=== PATIENT | female | born 1965 | race Caucasian/White ===

== ENCOUNTER 2024-04-10 19:45 | Emergency (ER) | payer OTHER, SELFPAY ==
[2024-04-10 19:51] VITALS: BP 139/82
[2024-04-10 20:15] LABS: % Basophils 0.7 % (0-2); % Immature Granulocytes 0.1 % (0-0.5); % Lymphocytes 32.5 % (20.5-51.1); % Monocytes 7.2 % (1.7-9.3); % Neutrophils 58.5 % (42.2-75.2); Absolute Basophils 0.1 10^3/uL (0-0.2); Absolute Eosinophils 0.1 10^3/uL (0-0.7); Absolute Monocytes 0.7 10^3/uL (0.1-0.6); Absolute Neutrophils 5.3 10^3/uL (1.4-6.5); Hematocrit 39.1 % (37.0-47.0); Hemoglobin 13.9 g/dL (12.0-16.0); Mean Corp Hgb Conc. 35.5 g/dL (33.0-37.0); Mean Corpuscular Volume 90.1 fL (81.0-99.0); Mean Platelet Volume 9.8 fL (7.4-10.4); Nucleated Red Blood Cells % 0 %; Platelet Count 303 10^3/uL (130-400); Red Blood Cell Count 4.34 10^6/uL (4.20-5.40); Red Cell Dist. Width 13.8 % (11.5-14.5); White Blood Cell Count 9.1 10^3/uL (4.8-10.8)
[2024-04-10 20:39] LABS: ALT (SGPT) 30 U/L (0-35); AST (SGOT) 23 U/L (14-36); Albumin 4.5 g/dl (3.5-5.0); Alkaline Phosphatase 82 U/L (38-126); Blood Urea Nitrogen 19 mg/dl (7-17); Calcium 9.7 mg/dl (8.4-10.2); Carbon Dioxide 20 mmol/L (22-30); Chloride 105 mmol/L (98-107); Glucose 99 mg/dl (70-99); Potassium 4.7 mmol/L (3.5-5.1); Sodium 140 mmol/L (135-145); Total Bilirubin 0.3 mg/dl (0.2-1.3); Total Protein 7.1 g/dl (6.3-8.2); eGFR > 60.00
[2024-04-10 20:39] LABS: INR 0.93; PT 12.5 Sec (11.4-14.6)
[2024-04-10 20:50] LABS: Troponin I < 0.012 ng/ml
[2024-04-10 21:57] VITALS: BMI 34.0
[2024-04-10 22:19] VITALS: BP 110/96
[2024-04-10 22:55] LABS: D-Dimer 0.84 ug/mlFEU (0.00-0.50)
[2024-04-10 23:06] LABS: Troponin I < 0.012 ng/ml
[2024-04-10 23:37] VITALS: BP 119/86
[2024-04-11 00:38] VITALS: BP 107/67
--- NOTE | 2024-04-11 00:52 | ED.GENMED ---
History of Present Illness
General
Chief Complaint: Chest Pain
Source: patient
Exam Limitations: none
Time Seen by Provider: 04/10/24 21:23
History of Present Illness
History of Present Illness:
58-year-old female who presents not feeling well. Patient states that she started not feel well earlier and just felt fatigued and weak. She suddenly woke up with chest pain shortness of breath. She states that pain is sort of all across her
chest and constant. Symptoms started about an hour prior to arrival. She does drive to [place] once a week or once every 2 weeks. She has a little bit of left ankle discomfort as well. No fevers. No cough. No hemoptysis. No injury.
Past History
Past History
ED Past Medical History: Psychiatric and Other (Gallstones, Thyroid Cancer)
ED Past Surgical History: Appendectomy, Cholecystectomy, and Gynecological; Negative Bowel resection
Social History
Tobacco: Non-smoker
Alcohol: None
Drug: None
Personal: Single
Living: with family
Employment: Employed
Family History
Family History: Other (Noncontributory)
Phy Exam
Physical Exam
Physical Exam:
CONSTITUTIONAL Patient alert and oriented to person, place and time. Well-appearing. Vital signs reviewed.
HEAD atraumatic, normocephalic.
EYES eyelids normal to inspection, Extraocular muscles intact, Conjunctiva normal, Sclera normal.
NECK normal range of motion, Trachea midline, no jugular venous distention.
RESPIRATORY CHEST No respiratory distress noted, Chest expansion equal, Bilateral breath sounds clear.
CARDIOVASCULAR regular rate and rhythm, Heart sounds normal.
ABDOMEN abdomen nontender, Bowel sounds normal. No distention.
BACK normal inspection, no obvious deformities
UPPER EXTREMITY range of motion normal, Motor strength normal, no cyanosis, no edema.
LOWER EXTREMITY range of motion normal, Motor strength normal, no cyanosis, no edema.
NEURO Speech normal, No focal motor deficits, [place] coma scale 15, Memory normal, Cranial Nerves intact to screening exam.
SKIN skin warm, dry, and normal in color.
Scores
Heart Score for Chest Pain Patients
STEMI patient?: No
History: Slightly or Non-Suspicious
ECG: Normal
Age: >45 - <65 years
Risk Factors: 1 or 2 Risk Factors
Troponin: </= Normal Limit
Heart Score for Chest Pain Patients: 2
Heart Score Risk: 2.5% MACE over next 6 weeks
Course
Orders/Labs/Results
Orders:
Orders
04/10/24 19:46
Electrocardiogram (*1) Urgent
Reason for Study: Chest Pain
EKG- Treatment ONCE
04/10/24 20:03
Complete Blood Count/With Diff Urgent
Comprehensive Metabolic Panel Urgent
Troponin I Urgent
04/10/24 20:05
PT/INR [Prothrombin Time] Urgent
04/10/24 22:31
D-Dimer Urgent
Troponin I Urgent
04/10/24 23:13
CT Chest Pe Study Urgent
Comment:
Reason For Exam: cp, sob
04/11/24 00:47
Ondansetron Injectable [Zofran] 4 mg IV NOW STA
04/11/24 00:50
Electrocardiogram (*1) Urgent
Reason for Study: Chest Pain
04/11/24 00:51
EKG- Treatment ONCE
04/11/24 01:00
Electrocardiogram (*1) Urgent
Reason for Study: Chest Pain
EKG- Treatment ONCE
Abnormal Lab Results
04/10/24 04/10/24
20:03 22:31
MCH 32.0 H pg
(27.0-31.0)
Absolute Monos (auto) 0.7 H 10^3/uL
(0.1-0.6)
D-Dimer 0.84 H ug/mlFEU
(0.00-0.50)
Carbon Dioxide 20 L mmol/L
(22-30)
BUN 19 H mg/dl
(7-17)
04/10/24 20:03
04/10/24 20:03
Vital Signs
Initial and Last Documented VS:
Initial Vital Signs
Temp Pulse Resp BP Pulse Ox
98.5 F 87 18 139/82 98
04/10/24 19:51 04/10/24 19:51 04/10/24 19:51 04/10/24 19:51 04/10/24 19:51
Last Documented Vital Signs
Temp Pulse Resp BP Pulse Ox
98.5 F 68 14 123/69 98
04/10/24 19:51 04/11/24 01:34 04/11/24 01:34 04/11/24 01:34 04/11/24 01:34
MDM/Problems Addressed
MDM/Problems Addressed:
Chest pain, dyspnea
*Radiology
Radiology exam reviewed: preliminary read by ED provider (No obvious large pulmonary artery clots) and radiology read reviewed
*Pulse Oximetry
Patient hypoxic: no
*EKG
Interpreted by ED Provider?: Yes
Interpretation: abnormal
Rate: normal
Rhythm: sinus
Cogswell: left axis deviation
Interval: normal interval
Ischemia: no ischemia
*Practice Business Asst Interpretation
Rate: normal
Interpretation: normal
Rhythm: sinus
*Critical Care Note
Total Time (30-74mins, 75-104mins- exclusive of procedures): Not Applicable
Data Reviewed
Source: patient
Prescriptions/Medications Considered But Not Given:
Consider nitroglycerin but low suspicion for ACS
Patient Management
Escalation/DeEscalation of care consider admission/obs:
EKG, CTA, troponin x 2 unremarkable. Patient overall appears well. Will refer for outpatient follow-up with cardiology follow-up hotline
ED Attending Note
-
Portions of this chart may have been created with voice recognition software.� Occasional wrong word or��sound alike� substitutions may have occurred due to the inherent limitations of voice recognition software.
Discharge Plan
Departure
Patient Disposition: Home (Routine Discharge)
Date of Disposition: 04/11/24
Time of Disposition: 01:01
Patient with high blood pressure during this ER visit?: Yes
Discharge Problem:
Chest pain, Acute dyspnea
Instructions: Chest Pain DCA Follow Up, BLOOD PRESSURE
Prescriptions:
No Action
ondansetron 4 MG tablet,disintegrating
4 mg PO TIDPRN PRN (Reason: nausea/vomiting) Qty: 10 0RF
Referrals:
NONE,* [Family Provider] -
Activity Restrictions/Additional Instructions:
Please take 81 mg of aspirin a day. Please avoid strenuous or exertional activity until cleared by cardiology. Please see cardiology in the next 48 hours for reevaluation. Return immediately for worsening pain, shortness breath, palpitations,
sweating, nausea, weakness of any kind, numbness, tingling or any other concerns.
Cardiology has been notified and a follow up appointment has been requested. Someone will call you on the next business day to schedule a follow up appointment.
Interventions
Interventions:
*Risk Screen - Suicide Last Done: 04/10/24 19:51
*General Assessment Last Done: 04/10/24 19:51
*Neglect/Abuse Screening Last Done: 04/10/24 19:51
ED- Fall Risk Assessment Last Done: 04/10/24 23:00
*ED COVID-19 Vaccine History Last Done: 04/10/24 19:51
ED- Cardiac Assessment Last Done: 04/10/24 23:00
Discharge Date and Time
Print Language: YAKUT
[2024-04-11] MEDS: ZOFRAN 4 MG IV (00:56)
[2024-04-11 01:00] VITALS: BP 120/81
[2024-04-11 01:34] VITALS: BP 123/69
== END 2024-04-11 01:57 | disposition home or self-care (01) ==
LOC: EMR 19:45
PROVIDERS: Emergency Medicine; EMERGENCY PHYSICIAN Emergency Medicine
DX: R07.9 Chest pain, unspecified (principal); R06.00 Dyspnea, unspecified; Z85.850 Personal history of malignant neoplasm of thyroid; Z90.49 Acquired absence of other specified parts of digestive tract
CPT/HCPCS: 99284; 96374; 71275; 80053; 84484; 85025; 85379; 85610; 93005; Q9967

== ENCOUNTER 2024-04-16 13:22 | Observation (INO) | payer OTHER, SELFPAY ==
[2024-04-16] VITALS (13 sets, daily range): BP systolic 98–148; BP diastolic 61–84; BMI 33.7; BMI 33.0
[2024-04-16 05:09] LABS: % Basophils 0.3 % (0-2); % Eosinophils 0.2 % (0-6); % Immature Granulocytes 0.4 % (0-0.5); % Lymphocytes 6.2 % (20.5-51.1); % Monocytes 4.3 % (1.7-9.3); % Neutrophils 88.6 % (42.2-75.2); Absolute Immature Granulocytes 0.1 10^3/uL (0-0.05); Absolute Lymphocytes 0.9 10^3/uL (1.2-3.4); Absolute Monocytes 0.6 10^3/uL (0.1-0.6); Absolute Neutrophils 12.5 10^3/uL (1.4-6.5); Hematocrit 40.4 % (37.0-47.0); Hemoglobin 13.8 g/dL (12.0-16.0); Mean Corp Hgb Conc. 34.2 g/dL (33.0-37.0); Mean Corpuscular Hgb 30.6 pg (27.0-31.0); Mean Corpuscular Volume 89.6 fL (81.0-99.0); Mean Platelet Volume 9.7 fL (7.4-10.4); Nucleated Red Blood Cells % 0 %; Platelet Count 294 10^3/uL (130-400); Red Blood Cell Count 4.51 10^6/uL (4.20-5.40); Red Cell Dist. Width 13.8 % (11.5-14.5); White Blood Cell Count 14.1 10^3/uL (4.8-10.8)
--- NOTE | 2024-04-16 05:09 | ED.GENMED ---
History of Present Illness
General
Chief Complaint: Chest Pain
Source: patient and records
Exam Limitations: none
Time Seen by Provider: 04/16/24 04:54
Nursing documentation reviewed up to this point in time: agreed with
History of Present Illness
History of Present Illness:
58-year-old female with speech of Oddi dysfunction prior drinker prior smoker seen here couple days ago with shortness of breath had a CT of her chest discharged home she has had numerous laparoscopies, woke up this morning short of breath sweaty,
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
Past History
Past History
ED Past Medical History: Psychiatric and Other (Gallstones, Thyroid Cancer)
ED Past Surgical History: Appendectomy, Cholecystectomy, and Gynecological; Negative Bowel resection
Social History
Tobacco: Non-smoker
Alcohol: None
Drug: None
Personal: Single
Living: with family
Employment: Employed
Family History
Family History: Other (Noncontributory)
Review of Systems
Review of Systems
All Other Systems: Not applicable
Constitutional: Denies fever or fatigue
EENT: Reports no symptoms
Respiratory: Reports trouble breathing
Cardiac: Reports chest pain
ABD/GI: Denies abdominal pain
: Reports no symptoms
Musculoskeletal: Reports no symptoms
Skin: Reports no symptoms
Neurological: Reports no symptoms
Endocrine: Reports no symptoms
Phy Exam
Physical Exam
Physical Exam:
Physical Exam
General: no apparent distress, not acutely ill
Neck: No jaundice
Heart: s1/s2 regular rate and rhythm, no murmur. equal radial pulses.
Lungs: no acute respiratory distress. clear bilaterally
Abdomen: Soft nontender
Neuro: alert and oriented. no focal neurological deficits
Skin: no rash
Psychiatric: well kept. interactive and cooperative
Extremities: no edema. no calf tenderness.
Scores
Heart Score for Chest Pain Patients
STEMI patient?: No
History: Slightly or Non-Suspicious
ECG: Normal
Age: </= 45 years
Risk Factors: No Risk Factors
Troponin: </= Normal Limit
Heart Score for Chest Pain Patients: 0
Heart Score Risk: 2.5% MACE over next 6 weeks
Course
Orders/Labs/Results
Orders:
Orders
04/16/24 03:37
ECG [Electrocardiogram (*1)] Urgent
Reason for Study: Chest Pain
EKG- Treatment ONCE
04/16/24 04:51
Cardiac Monitoring- Treatment ONCE
IV Insert/Care/Rem.- Treatment PRN
04/16/24 05:00
Complete Blood Count/With Diff Urgent
Comprehensive Metabolic Panel Urgent
Lipase Urgent
NT-proBNP Urgent
Troponin I Urgent
04/16/24 05:03
Ondansetron Injectable [Zofran] 4 mg IV NOW STA
Pantoprazole [Protonix IV] 40 mg IV NOW STA
04/16/24 05:37
CR Chest - 2 Views Urgent
Comment:
Reason For Exam: Shortness of breath
04/16/24 Breakfast
Regular
At Your Request: Full Participation
04/16/24 07:52
Ondansetron Injectable [Zofran] 4 mg .ROUTE .STK-MED ONE
04/16/24 07:53
Ondansetron Injectable [Zofran] 4 mg IV NOW STA
04/16/24 08:02
Electrocardiogram (*1) Urgent
Reason for Study: Other
Other Reason for Exam: 2nd troponin
EKG- Treatment ONCE
Troponin I Urgent
04/16/24 08:43
US Periph Venous LOWER Ext Scooter Urgent
Comment:
Reason For Exam: Leg pain/short of breath
04/16/24 12:53
Echo 2D MMode Color/Doppler [Echo 2D MMode Color/Doppler] Routine
Reason for Study: sob,chest pain
Ipratropium/Albuterol Sulfate [Duoneb] 3 ml INH R Q4HPRN PRN
Mag Hydrox/Al Hydrox/Simeth [Maalox] 30 ml PO NOW STA
04/16/24 12:55
Admit/Transfer Patient As Directed
Co-Sign Provider:
Level of Care: Observation services
Assign to:: Telemetry
Physician / Group: jordan llanes
Diagnosis: sob,chest pain
Reason for Telemetry: Arrhythmia
Date to Stop Telemetry: 04/19/24
Time to Stop Telemetry: 11:00
Budesonide [Pulmicort] 0.5 mg INH R BID
PRN Pain Medication Management As Directed
May give lesser potent ordered pain med per pt: Yes
preference::
Protocol:: Medication orders for pain may be administered in a
manner that supports deferring to patient preference
when the pt is:
- Requesting an ordered lesser potent pain medication.
Least to most potent pain medications are defined
as: acetaminophen < NSAID < tramadol < opioids
(morphine, oxycodone, hydromorphone).
- Requesting a lesser dose of the same medication IF
ORDERED.
- Requesting a less intrusive route of administration
if both routes are prescribed by the provider (PO <
IV).
04/16/24 12:56
Code Status As Directed
Resuscitation Status: Full Code
04/16/24 12:59
Abdomen Xray - 1 View [CR Abdomen - 1 View] Stat
Comment:
Reason For Exam: nausea,vomiting
04/16/24 14:00
Ondansetron Injectable [Zofran] 4 mg IV Q6HPRN PRN
04/16/24 14:38
Troponin I Q6H
04/16/24 16:00
Ipratropium/Albuterol Sulfate [Duoneb] 3 ml INH R QID
04/16/24 16:32
Acetaminophen [Tylenol] 650 mg PO Q4HPRN PRN
Bisacodyl [Dulcolax] 10 mg RECTAL [id number] PRN
Docusate W/Senna [Senokot-S] 1 tablet PO BIDPRN PRN
Polyethylene Glycol Powder [Miralax] 17 grams PO DAILYPRN PRN
04/16/24 16:32
Activity As Directed
Activity Level: As Tolerated
Intake/ Output As Directed
Frequency: Per unit guidelines
Pneumatic Compression Sleeves As Directed
Type: Knee high
Vital Signs As Directed
Frequency: Per unit guidelines
Weight As Directed
Frequency: Daily
Pulse Ox/spot Check [RESP] Routine
Quantity: 1
DX Deep Vein Thrombosis Video Routine
04/16/24 18:00
Enoxaparin Sodium [Lovenox] 40 mg SC QPM
04/16/24 19:32
Troponin I Q6H
04/17/24 01:04
Troponin I Q6H
04/17/24 06:00
Levothyroxine [Synthroid] 125 mcg PO DAILY @ 0600
04/17/24 07:24
Complete Blood Count/With Diff IN AM
Comprehensive Metabolic Panel IN AM
TSH Reflex To Free T4 IN AM
Troponin I Q6H
04/17/24 08:00
Pantoprazole [Protonix] 40 mg PO DAILY
04/18/24 05:32
Comprehensive Metabolic Panel IN AM
04/18/24 05:33
Complete Blood Count/With Diff IN AM
04/19/24 11:00
DC Protocol for Telemetry ONCE
Abnormal Lab Results
04/16/24
05:00
WBC 14.1 H 10^3/uL
(4.8-10.8)
Abs Immat Gran (auto) 0.1 H 10^3/uL
(0-0.05)
Absolute Neuts (auto) 12.5 H 10^3/uL
(1.4-6.5)
Absolute Lymphs (auto) 0.9 L 10^3/uL
(1.2-3.4)
Neutrophils % 88.6 H %
(42.2-75.2)
Lymphocytes % 6.2 L %
(20.5-51.1)
Chloride 108 H mmol/L
(98-107)
Carbon Dioxide 19 L mmol/L
(22-30)
BUN 19 H mg/dl
(7-17)
Glucose 140 H mg/dl
(70-99)
04/16/24 05:00
04/16/24 05:00
Vital Signs
Initial and Last Documented VS:
Initial Vital Signs
Temp Pulse Resp BP Pulse Ox
97.8 F 86 24 136/84 97
04/16/24 03:45 04/16/24 03:45 04/16/24 03:45 04/16/24 03:45 04/16/24 03:45
Last Documented Vital Signs
Temp Pulse Resp BP Pulse Ox
97.9 F 65 16 108/68 94
04/18/24 07:45 04/18/24 07:45 04/18/24 07:45 04/18/24 07:45 04/18/24 10:02
MDM/Problems Addressed
Differential Diagnosis Includes:
Gastritis pancreatitis
*Critical Care Note
Total Time (30-74mins, 75-104mins- exclusive of procedures): Not Applicable
ED Attending Note
-
Portions of this chart may have been created with voice recognition software.� Occasional wrong word or��sound alike� substitutions may have occurred due to the inherent limitations of voice recognition software.
Discharge Plan
Departure
Patient Disposition: Admit
Date of Disposition: 04/16/24
Time of Disposition: 11:29
Presentation/result/management discussed w/ accepting MD/DO: Hospitalist
Patient with high blood pressure during this ER visit?: Yes
Condition: Fair
Covid-19: Not Applicable
Discharge Problem:
Shortness of breath
Interventions
Interventions:
*Risk Screen - Suicide Last Done: 04/16/24 03:45
*General Assessment Last Done: 04/16/24 04:15
*Neglect/Abuse Screening Last Done: 04/16/24 04:15
ED- Fall Risk Assessment Last Done: 04/16/24 04:15
*ED COVID-19 Vaccine History Last Done: 04/16/24 04:15
*Nursing Disposition Last Done: 04/16/24 16:20
ED- Cardiac Assessment Last Done: 04/16/24 04:15
Discharge Date and Time
Discharge Date/Time: 04/16/24 16:20
[2024-04-16] MEDS: ZOFRAN 4 MG IV ×4 (05:14→23:12)
[2024-04-16] MEDS: PROTONIX IV 40 MG IV (05:16)
[2024-04-16 05:31] LABS: NT-proBNP < 20.0 pg/ml; Troponin I < 0.012 ng/ml
[2024-04-16 05:36] LABS: ALT (SGPT) 32 U/L (0-35); AST (SGOT) 23 U/L (14-36); Albumin 4.7 g/dl (3.5-5.0); Alkaline Phosphatase 80 U/L (38-126); Blood Urea Nitrogen 19 mg/dl (7-17); Calcium 9.7 mg/dl (8.4-10.2); Carbon Dioxide 19 mmol/L (22-30); Chloride 108 mmol/L (98-107); Estimated Creatinine Clearance 72 ml/min; Glucose 140 mg/dl (70-99); Lipase 111 U/L (23-300); Potassium 4.4 mmol/L (3.5-5.1); Sodium 142 mmol/L (135-145); Total Bilirubin 0.3 mg/dl (0.2-1.3); Total Protein 7.3 g/dl (6.3-8.2); eGFR > 60.00
[2024-04-16 08:46] LABS: Troponin I < 0.012 ng/ml
[2024-04-16] MEDS: PULMICORT INH (12:58)
--- NOTE | 2024-04-16 12:58 | HPS.HSE ---
Family Physician
-
Family Physician: PHYSICIAN PRIVATE
Chief Complaint
-
chest pain,sob
History of Present Illness
58-year-old female with past medical history of IBS, suicidal ideation, thyroid cancer came to the hospital with intermittent chest pain and shortness of breath. Patient was here last week with similar symptoms and was discharged home with
outpatient follow-up. Per patient her symptoms started again today. She also complaining of nausea and vomiting which per patient sometimes happens with her IBS. Denies any abdominal pain. Chest x-ray without any infiltration or fluids. Denies
any sick contacts, fever/chills. Denies any IV drug use.
Medical History
Past Medical History
Past Medical History: Reports Cancer and Psychiatric
Past Surgical History: Reports Appendectomy and Cholecystectomy
Social History
Tobacco: Former Smoker
Alcohol: None
Drug: None
Family History
Family History: Not pertinent
Allergies / Home Medications
Allergies reflects when Allergies were last updated in [facility].
Home Medications with original date entered in [facility]
Allergy/Medication List:
Allergies
Allergy/AdvReac Type Severity Reaction Status Date / Time
aspirin Allergy Unknown Verified 04/16/24 03:44
belladonna alkaloids Allergy Unknown Verified 04/16/24 03:44
ciprofloxacin Allergy Unknown Verified 04/16/24 03:44
erythromycin base Allergy Unknown Verified 04/16/24 03:44
hydrocodone [From Vicodin] Allergy Unknown Verified 04/16/24 03:44
levofloxacin [From Levaquin] Allergy Unknown Verified 04/16/24 03:44
nitrofurantoin Allergy Unknown Verified 04/16/24 03:44
[From Macrobid]
Penicillins Allergy Unknown Verified 04/16/24 03:44
Sulfa (Sulfonamide Allergy Unknown Verified 04/16/24 03:44
Antibiotics)
tetanus and diphtheria Allergy Unknown Verified 04/16/24 03:44
toxoids
Home Medications
levothyroxine 125 mcg tablet (Synthroid) 125 mcg PO DAILY Thyroid 04/16/24
ondansetron 8 mg disintegrating tablet 8 mg PO [id number] PRN nausea 04/16/24
Review of Systems
-
History Source: Patient
A 12 point ROS was completed and negative except as noted: Yes
Respiratory: Reports Trouble Breathing
Cardiac: Reports Chest Pain
Physical Exam
Vital Signs
Vital Signs
Temp Pulse Resp BP Pulse Ox
97.8 F 88 21 101/65 91
04/16/24 03:45 04/16/24 11:30 04/16/24 11:30 04/16/24 11:13 04/16/24 11:30
Physical Exam
General: Well Nourished and No Apparent Distress
HEENT: Moist mucous membranes and Atraumatic
Respiratory: Clear and Non Labored Respirations; No Wheezes
Cardiac: S1/S2 and Regular Rhythm
Breast: Deferred by me
GI: Soft, Non Tender, Non Distended and Normal Bowel Sounds
Rectal: Deferred by Provider
Genito-urinary: No Polo
Musculoskeletal: No Edema
Neuro: Awake, Alert, Oriented and AO x 3
Psych: Calm and Intact Judgment/Insight
Laboratory Results
-
04/16/24 05:00
04/16/24 05:00
Laboratory Results
Total Bilirubin 0.3 mg/dl (0.2-1.3) 04/16/24 05:00
AST 23 U/L (14-36) 04/16/24 05:00
ALT 32 U/L (0-35) 04/16/24 05:00
Alkaline Phosphatase 80 U/L (38-126) 04/16/24 05:00
Troponin I < 0.012 ng/ml 04/16/24 08:02
Lipase 111 U/L (23-300) 04/16/24 05:00
Data Reviewed
-
Lab Data: Labs Reviewed by me and Discussed with Patient
Impression/Plan
-
Chest pain and shortness of breath, etiology unknown
Rule out ACS
Trend troponin
Check echo
EKG noted
Recent CT chest 04/10 without any pulmonary embolism, mild acute versus chronic hazy groundglass airspace disease in both lower lobes. Mild subpleural emphysematous changes. Stable granulomatous disease. Given history of smoking and emphysematous
changes on CT, will start on inhaled steroids and breathing treatment.
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
There is 2.4 cm cyst in the upper aspect of the spleen.
trial of maalox
Nausea and vomiting
check abdomen xray
per patient his happens to her sometimes
denies constipation
History of thyroid cancer
On Synthroid
Check TSH with reflex T4
hx of IBS
History of appendectomy
History of cholecystectomy
DVT prophylaxis
Lovenox
Full code
[2024-04-16] MEDS: MAALOX 30 ML PO (13:21)
[2024-04-16] MEDS: DUONEB 3 ML INH ×2 (15:10→19:59)
[2024-04-16 15:11] LABS: Troponin I < 0.012 ng/ml
[2024-04-16] MEDS: LOVENOX 40 MG SC (16:59)
[2024-04-16] MEDS: PULMICORT 0.5 MG INH (19:59)
[2024-04-16 20:19] LABS: Troponin I < 0.012 ng/ml
[2024-04-17] VITALS (9 sets, daily range): BP systolic 100–123; BP diastolic 53–76; PULSE 70; O2SAT 97
[2024-04-17 01:40] LABS: Troponin I < 0.012 ng/ml
[2024-04-17] MEDS: SYNTHROID 125 MCG PO (05:31)
[2024-04-17] MEDS: PULMICORT 0.5 MG INH ×2 (07:11→19:23)
[2024-04-17] MEDS: DUONEB 3 ML INH ×4 (07:11→19:23)
[2024-04-17 07:57] LABS: Troponin I < 0.012 ng/ml
[2024-04-17 08:09] LABS: % Basophils 0.3 % (0-2); % Eosinophils 0.1 % (0-6); % Immature Granulocytes 0.1 % (0-0.5); % Lymphocytes 12.8 % (20.5-51.1); % Neutrophils 79.7 % (42.2-75.2); Absolute Lymphocytes 0.9 10^3/uL (1.2-3.4); Absolute Monocytes 0.5 10^3/uL (0.1-0.6); Absolute Neutrophils 5.5 10^3/uL (1.4-6.5); Hematocrit 36.3 % (37.0-47.0); Hemoglobin 12.7 g/dL (12.0-16.0); Mean Corpuscular Hgb 31.8 pg (27.0-31.0); Nucleated Red Blood Cells % 0 %; Red Blood Cell Count 3.99 10^6/uL (4.20-5.40); Red Cell Dist. Width 14.1 % (11.5-14.5)
[2024-04-17 08:14] LABS: ALT (SGPT) 26 U/L (0-35); AST (SGOT) 22 U/L (14-36); Alkaline Phosphatase 58 U/L (38-126); Blood Urea Nitrogen 17 mg/dl (7-17); Calcium 8.6 mg/dl (8.4-10.2); Carbon Dioxide 21 mmol/L (22-30); Chloride 102 mmol/L (98-107); Estimated Creatinine Clearance 71 ml/min; Glucose 110 mg/dl (70-99); Potassium 3.8 mmol/L (3.5-5.1); Sodium 137 mmol/L (135-145); Total Bilirubin 0.5 mg/dl (0.2-1.3); Total Protein 6.4 g/dl (6.3-8.2); eGFR > 60.00
[2024-04-17] MEDS: PROTONIX 40 MG PO (08:39)
[2024-04-17] MEDS: ZOFRAN 4 MG IV ×3 (08:41→21:22)
[2024-04-17 09:05] LABS: Free T4 0.47 ng/dl (0.78-2.19)
[2024-04-17] MEDS: TYLENOL 650 MG PO ×3 (09:43→21:20)
--- NOTE | 2024-04-17 10:57 | CM ---
SERA met with Nai at bedside to complete IA; CHALINO provided and signed copy placed in chart. Nai is originally from [place], but was living here with her boyfriend who
--- NOTE | 2024-04-17 11:01 | CM ---
SERA met with Nai at bedside to complete IA; CHALINO provided and signed copy placed in chart. Nai is originally from [place], but was living here with her boyfriend who at home on hospice. She has had great support from [facility].
Nai is preparing to sell the home she had been living in with her boyfriend, Gerber, and will be returning to [place] in the near future. She is (I) amb and adls and has no needs at discharge.
Plan: Discharge to home with no needs.
[2024-04-17 11:04] LABS: Mean Platelet Volume 9.9 fL (7.4-10.4); Platelet Count 233 10^3/uL (130-400)
--- NOTE | 2024-04-17 11:46 | W.PN.HOSP.TC ---
Today's Communication/Plan
-
Monitor vital signs see plan
Increase Synthroid
Continue with ICS, DuoNeb
PT/OT
Assessment / Plan
Assessment / Plan
General: Well Nourished and No Apparent Distress
HEENT: Moist mucous membranes and Atraumatic
Respiratory: Clear and Non Labored Respirations; No Wheezes
Cardiac: S1/S2 and Regular Rhythm
Breast: Deferred by me
GI: Soft, Non Tender, Non Distended and Normal Bowel Sounds
Genito-urinary: No Polo
Musculoskeletal: No Edema
Neuro: Awake, Alert, Oriented and AO x 3
Psych: Calm and Intact Judgment/Insight
Chest pain and shortness of breath, etiology unknown
Rule out ACS
Trend troponin neg
Check echo 04/17 without any wall motion abnormality. Advised patient to follow-up with cardiology outpatient for possible stress test if needed
EKG noted
Recent CT chest 04/10 without any pulmonary embolism, mild acute versus chronic hazy groundglass airspace disease in both lower lobes. Mild subpleural emphysematous changes. Stable granulomatous disease. Given history of smoking and emphysematous
changes on CT, will start on inhaled steroids and breathing treatment. per patient this has made her breathing better. She will need pulmonary follow-up outpatient
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
There is 2.4 cm cyst in the upper aspect of the spleen.
trial of maalox
Nausea and vomiting
check abdomen xray without acute abnormality
per patient his happens to her sometimes
denies constipation
History of thyroid cancer
On Synthroid
TSH high with low reflective free T4, increase Synthroid. patient to get repeat blood work outpatient
hx of IBS
History of appendectomy
History of cholecystectomy
DVT prophylaxis
Lovenox
Full code
Anticipated Discharge: Within 24 hours
Subjective/Interval History
-
Date of Service: April 17, 2024
denies pain
Objective Data
-
Labs:
Laboratory Results
04/17/24
07:24
WBC 7.0
Hgb 12.7
Hct 36.3 L
Plt Count 233 D
Sodium 137
Potassium 3.8
Chloride 102
Carbon Dioxide 21 L
BUN 17
Creatinine 0.9
Glucose 110 H
Calcium 8.6
Total Bilirubin 0.5
AST 22
ALT 26
Alkaline Phosphatase 58
Vital Signs:
Vital Signs
Temp Pulse Resp BP Pulse Ox
97.8 F 86 16 111/66 95
04/17/24 11:15 04/17/24 11:24 04/17/24 11:24 04/17/24 11:15 04/17/24 11:15
I&O
04/16/24 04/17/24 04/18/24
06:59 06:59 06:59
Intake Total 480 / 480
Output Total 4 / 4
Balance 476 / 476
[2024-04-17] MEDS: LOVENOX 40 MG SC (18:08)
[2024-04-18 03:45] VITALS: BP 108/69
[2024-04-18] MEDS: TYLENOL 650 MG PO (03:55)
[2024-04-18] MEDS: ZOFRAN 4 MG IV (03:57)
[2024-04-18 05:51] VITALS: BMI 32.7
[2024-04-18] MEDS: SYNTHROID 137 MCG PO (05:53)
[2024-04-18 06:49] LABS: % Basophils 0.3 % (0-2); % Eosinophils 1.3 % (0-6); % Immature Granulocytes 0.3 % (0-0.5); % Lymphocytes 27.2 % (20.5-51.1); % Monocytes 10.6 % (1.7-9.3); % Neutrophils 60.3 % (42.2-75.2); Absolute Eosinophils 0.1 10^3/uL (0-0.7); Absolute Monocytes 0.4 10^3/uL (0.1-0.6); Absolute Neutrophils 2.3 10^3/uL (1.4-6.5); Hematocrit 35.3 % (37.0-47.0); Hemoglobin 12.4 g/dL (12.0-16.0); Mean Corp Hgb Conc. 35.1 g/dL (33.0-37.0); Mean Corpuscular Hgb 32.1 pg (27.0-31.0); Mean Corpuscular Volume 91.5 fL (81.0-99.0); Mean Platelet Volume 10.1 fL (7.4-10.4); Nucleated Red Blood Cells % 0 %; Platelet Count 219 10^3/uL (130-400); Red Blood Cell Count 3.86 10^6/uL (4.20-5.40); White Blood Cell Count 3.8 10^3/uL (4.8-10.8)
[2024-04-18 07:16] LABS: ALT (SGPT) 30 U/L (0-35); AST (SGOT) 26 U/L (14-36); Albumin 3.9 g/dl (3.5-5.0); Alkaline Phosphatase 59 U/L (38-126); Blood Urea Nitrogen 12 mg/dl (7-17); Calcium 8.4 mg/dl (8.4-10.2); Carbon Dioxide 22 mmol/L (22-30); Chloride 102 mmol/L (98-107); Estimated Creatinine Clearance 80 ml/min; Glucose 92 mg/dl (70-99); Potassium 3.9 mmol/L (3.5-5.1); Sodium 139 mmol/L (135-145); Total Bilirubin 0.3 mg/dl (0.2-1.3); Total Protein 6.5 g/dl (6.3-8.2); eGFR > 60.00
[2024-04-18] MEDS: DUONEB 3 ML INH (07:29)
[2024-04-18] MEDS: PULMICORT 0.5 MG INH (07:30)
[2024-04-18 07:45] VITALS: BP 108/68
[2024-04-18] MEDS: PROTONIX 40 MG PO (08:39)
--- NOTE | 2024-04-18 10:48 | W.PN.HOSP.TC ---
Today's Communication/Plan
-
Monitor vital signs see plan
Discharged on inhaler
Patient to follow-up with PCP, cardiology and pulmonary outpatient
Continue Synthroid
Time of discharge 36 minutes
Assessment / Plan
Assessment / Plan
General: Well Nourished and No Apparent Distress
HEENT: Moist mucous membranes and Atraumatic
Respiratory: Clear and Non Labored Respirations; No Wheezes
Cardiac: S1/S2 and Regular Rhythm
GI: Soft, Non Tender, Non Distended and Normal Bowel Sounds
Genito-urinary: No Polo
Musculoskeletal: No Edema
Neuro: Awake, Alert, Oriented and AO x 3
Psych: Calm and Intact Judgment/Insight
Chest pain and shortness of breath, etiology unknown
Rule out ACS
chest pain resolved; sob improving with bronchodilators. Suspect component of obstructive pulmonary disease/emphysema. I advised patient to follow-up with pulmonary outpatient for PFTs. Will discharge on inhaler
Trend troponin neg
Check echo 04/17 without any wall motion abnormality. Advised patient to follow-up with cardiology outpatient for possible stress test if needed
EKG noted
Recent CT chest 04/10 without any pulmonary embolism, mild acute versus chronic hazy groundglass airspace disease in both lower lobes. Mild subpleural emphysematous changes. Stable granulomatous disease. Given history of smoking and emphysematous
changes on CT, will start on inhaled steroids and breathing treatment. per patient this has made her breathing better. She will need pulmonary follow-up outpatient
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
There is 2.4 cm cyst in the upper aspect of the spleen.
trial of maalox
Nausea and vomiting
check abdomen xray without acute abnormality
per patient his happens to her sometimes
denies constipation
Symptoms resolved
History of thyroid cancer
On Synthroid
TSH high with low reflective free T4, increase Synthroid. patient to get repeat blood work outpatient
hx of IBS
History of appendectomy
History of cholecystectomy
DVT prophylaxis
Lovenox
Full code
Anticipated Discharge: Today
Subjective/Interval History
-
Date of Service: April 18, 2024
denies pain
Objective Data
-
Labs:
Laboratory Results
04/18/24 04/18/24
05:32 05:33
WBC 3.8 L
Hgb 12.4
Hct 35.3 L
Plt Count 219
Sodium 139
Potassium 3.9
Chloride 102
Carbon Dioxide 22
BUN 12
Creatinine 0.8
Glucose 92
Calcium 8.4
Total Bilirubin 0.3
AST 26
ALT 30
Alkaline Phosphatase 59
Vital Signs:
Vital Signs
Temp Pulse Resp BP Pulse Ox
97.9 F 65 16 108/68 94
04/18/24 07:45 04/18/24 07:45 04/18/24 07:45 04/18/24 07:45 04/18/24 10:02
I&O
04/17/24 04/18/24 04/19/24
06:59 06:59 06:59
Intake Total 480 / 480 960 / 960
Output Total 4 / 4
Balance 476 / 476 960 / 960
--- NOTE | 2024-04-18 10:55 | W.DCSUMMARY ---
Discharge Summary
Discharge Data
Date of Admission: 04/16/24
Date of Discharge: 04/18/24
-
Pending Results: No
Hospital Course
58-year-old female with past medical history of IBS, thyroid cancer on Synthroid, cholecystectomy, appendectomy came to the hospital with chest pain and shortness of breath. For her chest pain her troponins were negative and her echocardiogram did
not show any wall motion abnormality. She was instructed to follow-up with cardiology outpatient for possible stress test. Her chest pain continue to improve while she was hospitalized. For her shortness of breath it was likely thought was
secondary to obstructive pulmonary disease given emphysematous changes on CT scan. She was already aware of her recent CT scan findings and will follow-up with her PCP outpatient. Her breathing continue to improve on bronchodilators. She
instructed to follow-up with pulmonary outpatient for PFTs. Her TSH was also very high with reflective free T4 being low. Her Synthroid dose was increased on this hospitalization. She was instructed follow-up with her import export clerk outpatient.
Once her symptoms continue to improve, she was then discharged home with instructions to follow-up with all her physicians outpatient.
Discharge Plan
-
Patient Disposition: Home (Routine Discharge)
Discharge Diagnosis/Procedures: Suspect obstructive pulmonary disease
Chest pain
Hypothyroidism
2.4 cm cystic left retrocrural mass
Diet: As tolerated
Activity: As tolerated
Driving Restrictions: As prior to admission
Bathing Restrictions: None
Blood Work: TSH with reflex to free T4 in 3 to 4 weeks
Activity Restrictions/Additional Instructions:
Please follow-up with your import export clerk, primary care provider, scroll assembler and pulmonary
Referrals:
PRIVATE,PHYSICIAN [Family Provider] - in less than 1 week
Prescriptions:
New
levothyroxine 137 mcg Tablet
137 mcg PO DAILY @ 0600 Qty: 30 0RF
acetaminophen 325 mg Tablet
650 mg PO Q4HPRN PRN (Reason: mild pain/CARDONA/temp> 100.4F) Qty: 0 0RF
pantoprazole 40 mg Tablet,Delayed Release (Dr/Ec)
40 mg PO DAILY Qty: 30 0RF
albuterol sulfate 90 mcg/actuation HFA aerosol inhaler
2 puff inhalation Q6H PRN (Reason: shortness of breath or wheezing) Qty: 8.5 0RF
budesonide-formoterol [Symbicort] 160-4.5 mcg/actuation HFA aerosol inhaler
2 puff inhalation BID Qty: 10.2 0RF
Continued
ondansetron 8 mg Tablet,Disintegrating
8 mg PO [id number] PRN (Reason: nausea) Qty: 14 0RF
Discontinued
levothyroxine [Synthroid] 125 mcg Tablet
125 mcg PO DAILY
Discharge Orders:
Discharge Patient (As Directed); Ordered 04/18/24
Ordered By: Landon Lynch
Discharge Date and Time
Discharge Date/Time: 04/18/24 11:35
Print Language: UPPER SORBIAN
[2024-04-18] MEDS: DUONEB INH (11:19)
--- NOTE | 2024-04-18 11:32 | CM ---
Patient seen at bedside.
IA completed. Obs form signed in chart
Originally from [place], but boyfriend resided in [place] who recently passed.
Lives in a multi-story home alone, steps to second floor
PLOF: Independent no assistive device, driving
No DME
No needs
PCP: Sofia [place]
Pharmacy: [facility]
PLAN: Home, no needs
Will transport self car is here at hospital
== END 2024-04-18 11:35 | disposition home or self-care (01) ==
LOC: 2 NORTH 13:22
PROVIDERS: ADMITTING PHYSICIAN Internal Medicine; EMERGENCY PHYSICIAN Emergency Medicine
DX: R06.02 Shortness of breath (principal); R07.9 Chest pain, unspecified; R60.0 Localized edema; K58.9 Irritable bowel syndrome, unspecified; R94.31 Abnormal electrocardiogram [ECG] [EKG]; I51.7 Cardiomegaly; D73.4 Cyst of spleen; E03.9 Hypothyroidism, unspecified; R11.2 Nausea with vomiting, unspecified; Z87.891 Personal history of nicotine dependence; Z88.6 Allergy status to analgesic agent; Z88.1 Allergy status to other antibiotic agents; Z88.3 Allergy status to other anti-infective agents; Z88.5 Allergy status to narcotic agent; Z88.0 Allergy status to penicillin; Z88.2 Allergy status to sulfonamides; Z88.7 Allergy status to serum and vaccine; Z88.8 Allergy status to other drugs, medicaments and biological substances; Z79.890 Hormone replacement therapy; Z85.850 Personal history of malignant neoplasm of thyroid; Z90.49 Acquired absence of other specified parts of digestive tract; Z60.2 Problems related to living alone
CPT/HCPCS: 71046; 74018; 80053; 83690; 83880; 84439; 84443; 84484; 85025; 87070; 87324; 87449; 93005; 93306; 93970; 94640; 96374; 96375; 96376; 97161; 99285

== ENCOUNTER 2024-05-05 02:35 | Emergency (ER) | payer OTHER, SELFPAY ==
[2024-05-05 02:39] VITALS: BP 140/80
[2024-05-05 03:03] VITALS: BMI 33.2
--- NOTE | 2024-05-05 03:04 | ED.GENMED ---
History of Present Illness
<Deborah Zheng MD, Resident - Last Filed: 05/05/24 05:05>
General
Chief Complaint: Abdominal Pain
Source: patient
Exam Limitations: none
Time Seen by Provider: 05/05/24 02:47
Nursing documentation reviewed up to this point in time: agreed with
History of Present Illness
History of Present Illness:
58-year-old female with past medical history significant for sphincter of Oddi dysfunction, hypothyroidism, questionable thyroid carcinoma, peritoneal carcinoma, multiple abdominal surgeries (hysterectomy, cholecystectomy, laparoscopic, tubal
ligation), IBS diarrhea predominant presents to the hospital for evaluation of palpitations, shortness of breath, dizziness, nausea and emesis. Patient was asleep today, around 2:15 AM patient woke up from the middle of the sleep with her heart
rate in 120s, feeling diaphoretic, nausea and emesis, abdominal discomfort and heart racing. Patient did not see her emesis but has 2-3 episodes of emesis which is accompanied by diarrhea-3 episodes since arrival to the ER. Patient did not notice
the consistency of stools or if there is a blood in the stool. She states that her palpitations, sweating, nausea and emesis were associated with dizziness and a sensation of passing out. She had similar episode in [place] about 2 weeks ago, and
she was hospitalized and evaluated with an echocardiogram and stress test both of which were not significant. She followed up with her accountant clerk (in [place]) on before coming to [place]. She also reports bilateral joint swellings
in her ankle but denies having other joint swellings.
also states that she has been under a lot of stress lately with her boyfriend passing away, and she trying to move from [place] to [place] to take care of her father. When asked if she is depressed or has any suicidal ideation, patient tends
teary and admits to be under stress but denies being depressed. Patient also denies prior alcohol or opioids use however her past medical records from 2019 suggest opioid use and alcohol use disorder with active suicidal ideation.
Today she denies having any fevers, chills, exposure to sick contacts, chest pain, orthopnea, PND, dyspnea on exertion.
If applicable-neuro sx onset
Onset of symptoms known: No
Time pt last seen normal is known: No
Past History
<Deborah Zheng MD, Resident - Last Filed: 05/05/24 05:05>
Past History
ED Past Medical History: Psychiatric and Other (Gallstones, Thyroid Cancer)
ED Past Surgical History: Appendectomy, Cholecystectomy, and Gynecological; Negative Bowel resection
Social History
Tobacco: Non-smoker
Alcohol: None
Drug: None
Personal: Single
Living: with family
Employment: Employed
Family History
Family History: Other (Noncontributory)
Review of Systems
<Deborah Zheng MD, Resident - Last Filed: 05/05/24 05:05>
Review of Systems
Allergies reviewed?: Yes
Other source history: family
Constitutional: Reports no symptoms
EENT: Reports no symptoms
Respiratory: Reports no symptoms
Cardiac: Reports diaphoresis and palpitations
ABD/GI: Reports nausea, vomiting and diarrhea; Denies abdominal pain, constipated, bloody stools or anorexia
: Reports no symptoms
Musculoskeletal: Reports joint swelling
Skin: Reports no symptoms
Neurological: Reports dizzy; Denies headache, weakness or numbness
Endocrine: Reports no symptoms
Hematologic/Lymphatic: Reports no symptoms
Psychiatric: Reports no symptoms
Phy Exam
<Deborah Zheng MD, Resident - Last Filed: 05/05/24 05:05>
General Physical Exam
General Presentation: well appearing and no apparent distress
General Skin: warm
General Habitus: normal
General Mental: alert
General Hydration: appears well hydrated
ENT Exam
ENT Exam: TM's normal and pharynx normal
Eye Exam
Eye Exam: PERRL, EOMI and disc sharp
Cardiovascular Exam
Cardiovascular Exam: regular rate/rhythm, no gallop, no JVD, no murmur and normal peripheral pulses
Heart Sounds: normal
Pulmonary Exam
Pulmonary Exam: lungs clear, no respiratory distress, no rales, no crackles and no rhonchi
Gastrointestinal Exam
Gastrointestinal Exam: normal bowel sounds, soft, non distended, no cva tenderness and tender (Mild tenderness in right upper and right lower quadrants.)
Neurological Exam
Neurological Exam: alert, oriented x3, CN II-XII intact, normal reflexs and no sensory deficits
Musculoskeletal Exam
Musculoskeletal Exam: full ROM and joint swelling (Bilateral 1+ pitting edema in the ankle joints. No pitting edema on the bilateral shins, knee joints, elbow joints, wrist joints.)
Skin Exam
Skin Exam: normal color
Course
<Deborah Zheng MD, Resident - Last Filed: 05/05/24 05:05>
Orders/Labs/Results
Orders:
Orders
05/05/24 02:49
Electrocardiogram (*1) Urgent
Reason for Study: Vertigo / Dizzy
Cardiac Monitoring- Treatment ONCE
EKG- Treatment ONCE
05/05/24 02:51
CMP [Comprehensive Metabolic Panel] Urgent
Complete Blood Count/With Diff Urgent
Free T4 Urgent
TSH Reflex To Free T4 Urgent
05/05/24 03:04
0.9% Sodium Chloride 500 ml [Nss] 500 ml IV BOLUS
05/05/24 03:36
Troponin I Urgent
05/05/24 03:38
0.9% Sodium Chloride 1000 ml [Nss] 1,500 ml IV BOLUS
Lorazepam [Ativan] 0.5 mg IV NOW STA
05/05/24 03:39
Pantoprazole [Protonix IV] 40 mg IV NOW STA
05/05/24 03:44
CR Obstruct Series W/pa Chest Urgent
Comment:
Reason For Exam: nausea and vomiting
Abnormal Lab Results
05/05/24
02:51
RBC 4.06 L 10^6/uL
(4.20-5.40)
Hct 36.7 L %
(37.0-47.0)
MCH 31.8 H pg
(27.0-31.0)
Chloride 108 H mmol/L
(98-107)
Carbon Dioxide 20 L mmol/L
(22-30)
BUN 22 H mg/dl
(7-17)
Glucose 111 H mg/dl
(70-99)
ALT 63 H U/L
(0-35)
TSH (Reflex) 59.60 H uIU/ml
(0.47-4.68)
05/05/24 02:51
05/05/24 02:51
Vital Signs
Initial and Last Documented VS:
Initial Vital Signs
Temp Pulse Resp BP Pulse Ox
97.9 F 108 18 140/80 98
05/05/24 02:39 05/05/24 02:39 05/05/24 02:39 05/05/24 02:39 05/05/24 02:39
Last Documented Vital Signs
Temp Pulse Resp BP Pulse Ox
97.9 F 108 18 140/80 98
05/05/24 02:39 05/05/24 02:39 05/05/24 02:39 05/05/24 02:39 05/05/24 02:39
Sandralt;Aric Leal, - Last Filed: 05/05/24 04:58>
Orders/Labs/Results
Orders:
Orders
05/05/24 02:49
Electrocardiogram (*1) Urgent
Reason for Study: Vertigo / Dizzy
Cardiac Monitoring- Treatment ONCE
EKG- Treatment ONCE
05/05/24 02:51
CMP [Comprehensive Metabolic Panel] Urgent
Complete Blood Count/With Diff Urgent
Free T4 Urgent
TSH Reflex To Free T4 Urgent
05/05/24 03:04
0.9% Sodium Chloride 500 ml [Nss] 500 ml IV BOLUS
05/05/24 03:36
Troponin I Urgent
05/05/24 03:38
0.9% Sodium Chloride 1000 ml [Nss] 1,500 ml IV BOLUS
Lorazepam [Ativan] 0.5 mg IV NOW STA
05/05/24 03:39
Pantoprazole [Protonix IV] 40 mg IV NOW STA
05/05/24 03:44
CR Obstruct Series W/pa Chest Urgent
Comment:
Reason For Exam: nausea and vomiting
Abnormal Lab Results
05/05/24
02:51
RBC 4.06 L 10^6/uL
(4.20-5.40)
Hct 36.7 L %
(37.0-47.0)
MCH 31.8 H pg
(27.0-31.0)
Chloride 108 H mmol/L
(98-107)
Carbon Dioxide 20 L mmol/L
(22-30)
BUN 22 H mg/dl
(7-17)
Glucose 111 H mg/dl
(70-99)
ALT 63 H U/L
(0-35)
TSH (Reflex) 59.60 H uIU/ml
(0.47-4.68)
05/05/24 02:51
05/05/24 02:51
Vital Signs
Initial and Last Documented VS:
Initial Vital Signs
Temp Pulse Resp BP Pulse Ox
97.9 F 108 18 140/80 98
05/05/24 02:39 05/05/24 02:39 05/05/24 02:39 05/05/24 02:39 05/05/24 02:39
Last Documented Vital Signs
Temp Pulse Resp BP Pulse Ox
97.9 F 108 18 140/80 98
05/05/24 02:39 05/05/24 02:39 05/05/24 02:39 05/05/24 02:39 05/05/24 02:39
<Deborah Zheng MD, Resident - Last Filed: 05/05/24 05:05>
MDM/Problems Addressed
Differential Diagnosis Includes:
Small bowel obstruction, gallstones and CBD, anxiety, substance use/withdrawal,
<Deborah Zheng MD, Resident - Last Filed: 05/05/24 05:05>
*Critical Care Note
Total Time (30-74mins, 75-104mins- exclusive of procedures): Not Applicable
<Deborah Zheng MD, Resident - Last Filed: 05/05/24 05:05>
Update Note
Update Note:
5 AM x-ray noted unremarkable to my eye formal report pending, labs noted highly elevated TSH and baseline free T4 noted, patient will require outpatient follow-up.
<Aric Leal DO - Last Filed: 05/05/24 04:58>
Update Note
Update Note:
5 AM x-ray noted unremarkable to my eye formal report pending, labs noted TSH and free T4 noted, patient will require outpatient follow-up
ED Attending Note
<Deborah Zheng MD, Resident - Last Filed: 05/05/24 05:05>
-
Portions of this chart may have been created with voice recognition software.� Occasional wrong word or��sound alike� substitutions may have occurred due to the inherent limitations of voice recognition software.
<Aric Leal DO - Last Filed: 05/05/24 04:58>
ED Attending Note
Patient seen and examined by attending physician: Yes
I performed a history and physical exam of patient and discussed management with resident, I reviewed resident's note and agree with documented findings and plan of care.: Yes
ED Attending Note:
Seen with resident examined independently 58-year-old female multiple prior abdominal surgeries presents with nausea dyspepsia, woke her from her sleep, admitted to hospital in [place] few weeks ago with similar, followed up with her accountant clerk
in [place], prior records reviewed did have a visit with some issues with alcoholism seen by a psychiatrist, denies any alcohol, not tachypneic not tachycardic
Discharge Plan
Departure
Patient Disposition: Home (Routine Discharge)
Date of Disposition: 05/05/24
Time of Disposition: 05:01
Patient with high blood pressure during this ER visit?: Yes
Condition: Fair
Discharge Problem:
Severe hypothyroidism, Anxiety
Prescriptions:
No Action
levothyroxine 137 mcg Tablet
137 mcg PO DAILY @ 0600 Qty: 30 0RF
acetaminophen 325 mg Tablet
650 mg PO Q4HPRN PRN (Reason: mild pain/CARDONA/temp> 100.4F) Qty: 0 0RF
pantoprazole 40 mg Tablet,Delayed Release (Dr/Ec)
40 mg PO DAILY Qty: 30 0RF
albuterol sulfate 90 mcg/actuation HFA aerosol inhaler
2 puff inhalation Q6H PRN (Reason: shortness of breath or wheezing) Qty: 8.5 0RF
budesonide-formoterol [Symbicort] 160-4.5 mcg/actuation HFA aerosol inhaler
2 puff inhalation BID Qty: 10.2 0RF
ondansetron 8 mg Tablet,Disintegrating
8 mg PO [id number] PRN (Reason: nausea) Qty: 14 0RF
Referrals:
PRIVATE,PHYSICIAN [Family Provider] -
Deborah Zheng MD, Resident [Emergency Midlevel Provider] - (PCP, family medicine.)
Activity Restrictions/Additional Instructions:
Your TSH values are elevated to 59.68 in the ER. Your free T4 levels are at 0.79-low normal.
Follow-up with your primary care in [place] within 1 to 2 weeks of discharge or establish a primary care at [facility] for your thyroid medication dose adjustment.
Interventions
Interventions:
*Risk Screen - Suicide Last Done: 05/05/24 02:39
*General Assessment Last Done: 05/05/24 03:03
*Neglect/Abuse Screening Last Done: 05/05/24 02:39
*ED COVID-19 Vaccine History Last Done: 05/05/24 03:03
Discharge Date and Time
Print Language: YORUBA
[2024-05-05] MEDS: NSS 500 IV (03:05)
[2024-05-05 03:06] VITALS: BP 130/83
[2024-05-05 03:14] LABS: % Basophils 0.8 % (0-2); % Eosinophils 1.3 % (0-6); % Immature Granulocytes 0.3 % (0-0.5); % Lymphocytes 42.5 % (20.5-51.1); % Monocytes 8.1 % (1.7-9.3); Absolute Basophils 0.1 10^3/uL (0-0.2); Absolute Eosinophils 0.1 10^3/uL (0-0.7); Absolute Lymphocytes 3.1 10^3/uL (1.2-3.4); Absolute Monocytes 0.6 10^3/uL (0.1-0.6); Absolute Neutrophils 3.4 10^3/uL (1.4-6.5); Hematocrit 36.7 % (37.0-47.0); Hemoglobin 12.9 g/dL (12.0-16.0); Mean Corp Hgb Conc. 35.1 g/dL (33.0-37.0); Mean Corpuscular Hgb 31.8 pg (27.0-31.0); Mean Corpuscular Volume 90.4 fL (81.0-99.0); Mean Platelet Volume 9.8 fL (7.4-10.4); Nucleated Red Blood Cells % 0 %; Platelet Count 301 10^3/uL (130-400); Red Blood Cell Count 4.06 10^6/uL (4.20-5.40); Red Cell Dist. Width 13.5 % (11.5-14.5); White Blood Cell Count 7.2 10^3/uL (4.8-10.8)
[2024-05-05 03:30] LABS: ALT (SGPT) 63 U/L (0-35); AST (SGOT) 29 U/L (14-36); Albumin 4.4 g/dl (3.5-5.0); Alkaline Phosphatase 99 U/L (38-126); Blood Urea Nitrogen 22 mg/dl (7-17); Calcium 9.4 mg/dl (8.4-10.2); Carbon Dioxide 20 mmol/L (22-30); Chloride 108 mmol/L (98-107); Estimated Creatinine Clearance 71 ml/min; Glucose 111 mg/dl (70-99); Potassium 4.1 mmol/L (3.5-5.1); Sodium 143 mmol/L (135-145); Total Bilirubin 0.3 mg/dl (0.2-1.3); eGFR > 60.00
[2024-05-05] MEDS: ATIVAN 0.5 MG IV (03:43)
[2024-05-05] MEDS: PROTONIX IV 40 MG IV (03:43)
[2024-05-05] MEDS: NSS 1500 IV (03:44)
[2024-05-05 04:16] LABS: Troponin I < 0.012 ng/ml
[2024-05-05 04:31] LABS: Free T4 0.79 ng/dl (0.78-2.19)
== END 2024-05-05 06:26 | disposition home or self-care (01) ==
LOC: EMR 02:35
PROVIDERS: EMERGENCY PHYSICIAN Emergency Medicine
DX: E03.9 Hypothyroidism, unspecified (principal); F41.9 Anxiety disorder, unspecified; R03.0 Elevated blood-pressure reading, without diagnosis of hypertension
CPT/HCPCS: 99285; 96374; 96375; 96361; 74022; 80053; 84439; 84443; 84484; 85025; 93005